=== PATIENT | female | born 1940 | race Caucasian/White ===

== ENCOUNTER 2017-02-20 16:53 | Emergency (ER) | payer MEDICARE, BC ==
--- NOTE | 2017-02-20 17:41 | ED Physician Documentation ---
PD HPI GI BLEED - Stated complaint Stated Complaint: RECTAL BLEED - Chief complaint Chief Complaint: General - History obtained from History obtained from: Patient - History of Present Illness Timing - onset: How many days ago (3) Timing - duration: Days (3) Timing - details: Gradual onset Pain level max: 0 Pain level now: 0 Associated symptoms: Maroon stool (states dark/bright blood coating the stool). No: Hematemesis, Black/tarry stool, Diarrhea, Constipation, Abdominal pain Contributing factors: No: Sick contact, Bad food, Travel, Recent antibiotics, Alcohol use, Aspirin use, NSAID use, Stress, Anticoagulated, Diabetes Improved by: Other (nothing) Worsened by: Other (nothing) Similar symptoms before: Has not had sx before Recently seen: Clinic (2 days ago for same. Has a colonoscopy scheduled for Thursday. 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 - Past Surgical History General: Appendectomy /DIGITAL TECHNICIAN: Mastectomy HEENT: Tonsil/Adenoidectomy - Present Medications Home Medications: Ambulatory Orders Medication Instructions Recorded Confirmed Amlodipine/Atorvastatin 1 tab PO DAILY 02/20/17 02/20/17 [Amlodipine-Atorvast 5-40 mg] Hydrochlorothiazide 1 tab PO DAILY 02/20/17 02/20/17 [Hydrochlorothiazide] Levothyroxine Sodium 1 tab PO DAILY 02/20/17 02/20/17 Metoprolol Succinate [Toprol Xl] 1 tab PO DAILY 02/20/17 02/20/17 - Allergies Allergies/Adverse Reactions: Allergies Allergy/AdvReac Type Severity Reaction Status Date / Time acetaminophen [From Percocet] AdvReac Nausea Verified 02/20/17 17:09 oxycodone HCl * AdvReac Nausea Verified 02/20/17 17:09 [From Percocet] - Social History Does the pt smoke?: No Smoking Status: Former smoker Does the pt drink ETOH?: Yes ETOH Use: Wine, Liquor Does the pt have substance abuse?: No - Immunizations Immunizations are current?: Yes PD ED PE NORMAL - Vitals Vital signs reviewed: Yes - General General: Alert and oriented X 3, No acute distress - HEENT HEENT: Moist mucous membranes - Neck Neck: Supple, no meningeal sign - Cardiac Cardiac: RRR - Respiratory Respiratory: No respiratory distress, Clear bilaterally - Abdomen Abdomen: Soft, Non tender, Non distended - Female Female : Pt declined (had rectal 2 days ago and has colonoscopy in 3 days) - Derm Derm: Warm and dry - Neuro Neuro: Alert and oriented X 3 - Psych Psych: Normal mood, Normal affect Results - Vitals Vitals: Vital Signs - 24 hr 02/20/17 02/20/17 17:00 18:24 Temperature 36.5 C 37.0 C Heart Rate 64 57 L Respiratory 20 16 Rate Blood Pressure 156/71 H 150/65 H O2 Saturation 100 98 Oxygen O2 Source Room air - Labs Labs: Laboratory Tests 02/20/17 02/20/17 02/20/17 17:24 17:24 17:24 WBC 6.9 RBC 3.40 L Hgb 10.3 L Hct 30.3 L MCV 89.1 MCH 30.4 MCHC 34.1 RDW 14.2 Plt Count 274 MPV 9.4 Neut # 4.0 Lymph # 2.2 [place] # 0.6 Eos # 0.1 Baso # 0.1 Absolute Nucleated RBC 0.01 Nucleated RBCs 0.1 PT INR APTT Sodium 137 Potassium 3.8 Chloride 102 Carbon Dioxide 24 Anion Gap 11.0 BUN 19 Creatinine 0.5 Estimated GFR (MDRD) 121 Glucose 95 Calcium 9.3 Total Bilirubin 0.5 AST 30 ALT 31 Alkaline Phosphatase 64 Total Protein 7.2 Albumin 4.3 Globulin 2.9 Albumin/Globulin Ratio 1.5 Lipase 35 Blood Type AB NEGATIVE Antibody Screen NEGATIVE 02/20/17 18:10 WBC RBC Hgb Hct MCV MCH MCHC RDW Plt Count MPV Neut # Lymph # [place] # Eos # Baso # Absolute Nucleated RBC Nucleated RBCs PT 10.3 INR 0.9 APTT 25.5 Sodium Potassium Chloride Carbon Dioxide Anion Gap BUN Creatinine Estimated GFR (MDRD) Glucose Calcium Total Bilirubin AST ALT Alkaline Phosphatase Total Protein Albumin Globulin Albumin/Globulin Ratio Lipase Blood Type Antibody Screen PD MEDICAL DECISION MAKING - ED course Complexity details: reviewed results, re-evaluated patient, considered differential, d/w patient ED course: Patient is a 76-year-old female with what sounds like a stable lower GI bleed. Asymptomatic here. Declines a rectal examination. She is very well-appearing, nontoxic. Normal vital signs. Minimally anemic. We will have her follow-up with her doctor next week as scheduled for her colonoscopy. Patient will return if she worsens. Patient counseled regarding signs and symptoms for which I believe and urgent re-evaluation would be necessary. Patient with good understanding of and agreement to plan and is comfortable going home at this time This document was made in part using voice recognition software. While efforts are made to proofread this document, sound alike and grammatical errors may occur. Departure - Departure Disposition: 01 Home, Self Care Clinical Impression: Lower GI bleed Condition: Good Instructions: ED Hematochezia Stable Follow-Up: Murali Pro DO [Primary Care Provider] - Within 3 Days Comments: Return if the bleeding worsens, you develop lightheadedness, shortness of breath , or chest pain. Discharge Date/Time: 02/20/17 19:05
[2017-02-20 17:55] LABS: BASOPHILS # (AUTO) 0.1 10^3/uL (0.0-0.1); BASOPHILS % (AUTO) 0.8 %; EOSINOPHILS # (AUTO) 0.1 10^3/uL (0.0-0.7); EOSINOPHILS % (AUTO) 1.1 %; HCT - HEMATOCRIT 30.3 % (37.0-47.0); HGB - HEMOGLOBIN 10.3 g/dL (12.0-16.0); LYMPHOCYTES # (AUTO) 2.2 10^3/uL (1.5-3.5); LYMPHOCYTES % (AUTO) 31.5 %; MEAN CORPUSCULAR HEMOGLOBIN 30.4 pg (27.0-31.0); MEAN CORPUSCULAR HGB CONC 34.1 g/dL (32.0-36.0); MEAN CORPUSCULAR VOLUME 89.1 fL (81.0-99.0); MEAN PLATELET VOLUME 9.4 fL (7.9-10.8); MONOCYTES # (AUTO) 0.6 10^3/uL (0.0-1.0); MONOCYTES % (AUTO) 8.9 %; NEUTROPHILS % (AUTO) 57.7 %; NUCLEATED RED BLOOD CELLS AUTO 0.1 /100WBC; RED CELL DISTRIBUTION WIDTH 14.2 % (12.0-15.0); UNCORRECTED WHITE BLOOD COUNT 6.9 x10^3/uL; WHITE BLOOD COUNT 6.9 x10^3/uL (4.8-10.8)
[2017-02-20 18:03] LABS: ALBUMIN/GLOBULIN RATIO 1.5 (1.0-2.2); BILIRUBIN,TOTAL 0.5 mg/dL (0.2-1.0); CALCIUM 9.3 mg/dL (8.5-10.3); CREATININE 0.5 mg/dL (0.4-1.0); POTASSIUM 3.8 mmol/L (3.5-5.0); TOTAL PROTEIN 7.2 g/dL (6.7-8.2)
[2017-02-20 18:25] VITALS: BP 150/65
[2017-02-20 18:27] LABS: INR 0.9 (0.8-1.2); PT - PROTHROMBIN TIME 10.3 secs (9.9-12.6)
[2017-02-20 18:35] LABS: PARTIAL THROMBOPLASTIN TIME 25.5 secs (24.9-33.3)
== END 2017-02-20 19:05 | disposition home or self-care (01) ==
LOC: ED 16:53
DX: K92.1 Melena (principal); I10 Essential (primary) hypertension; J44.9 Chronic obstructive pulmonary disease, unspecified; Z85.3 Personal history of malignant neoplasm of breast; Z90.10 Acquired absence of unspecified breast and nipple; Z87.891 Personal history of nicotine dependence
CPT/HCPCS: 36415; 80053; 83690; 85025; 85610; 85730; 86850; 86900; 86901; 99283; 99284

== ENCOUNTER 2017-03-05 08:30 | Day surgery (SDC) | payer MEDICARE, BC ==
[2017-03-05] MEDS ORDERED: LACTATED RINGERS 1,000 ML IV ONE (08:54)
[2017-03-05] MEDS ORDERED: fentaNYL 100 MCG/2 ML VIAL IVP ONE (09:32)
[2017-03-05] MEDS ORDERED: MIDAZOLAM 2 MG/2 ML VIAL IVP ONE (09:32)
[2017-03-05 10:58] VITALS: BP 122/68
== END 2017-03-05 08:31 | disposition home or self-care (01) ==
LOC: SDS 08:30
PROVIDERS: ATTEND Surgery
PROC: 0DBL8ZZ Excision of Transverse Colon, Via Natural or Artificial Opening Endoscopic (ICD-10-PCS; 2017-03-05)
PROC: 0DBK8ZZ Excision of Ascending Colon, Via Natural or Artificial Opening Endoscopic (ICD-10-PCS; principal; 2017-03-05 09:45)
DX: K62.5 Hemorrhage of anus and rectum (principal); D12.3 Benign neoplasm of transverse colon; D12.2 Benign neoplasm of ascending colon; K64.8 Other hemorrhoids; K57.30 Diverticulosis of large intestine without perforation or abscess without bleeding
CPT/HCPCS: 45380; J7120; 88305

== ENCOUNTER 2017-05-04 15:20 | Outpatient (CLI) | payer MEDICARE, BC ==
[2017-05-04 13:11] LABS: BASOPHILS % (AUTO) 0.6 %; EOSINOPHILS # (AUTO) 0.1 10^3/uL (0.0-0.7); EOSINOPHILS % (AUTO) 1.7 %; HCT - HEMATOCRIT 33.5 % (37.0-47.0); HGB - HEMOGLOBIN 10.6 g/dL (12.0-16.0); LYMPHOCYTES # (AUTO) 1.7 10^3/uL (1.5-3.5); LYMPHOCYTES % (AUTO) 24.5 %; MEAN CORPUSCULAR HEMOGLOBIN 23.5 pg (27.0-31.0); MEAN CORPUSCULAR HGB CONC 31.6 g/dL (32.0-36.0); MEAN CORPUSCULAR VOLUME 74.4 fL (81.0-99.0); MEAN PLATELET VOLUME 8.4 fL (7.9-10.8); MONOCYTES # (AUTO) 0.8 10^3/uL (0.0-1.0); MONOCYTES % (AUTO) 11.1 %; NEUTROPHILS # (AUTO) 4.2 10^3/uL (1.5-6.6); NEUTROPHILS % (AUTO) 62.1 %; NUCLEATED RED BLOOD CELLS AUTO 0.1 /100WBC; RED CELL DISTRIBUTION WIDTH 18.1 % (12.0-15.0); UNCORRECTED WHITE BLOOD COUNT 6.8 x10^3/uL; WHITE BLOOD COUNT 6.8 x10^3/uL (4.8-10.8)
[2017-05-04 13:53] LABS: ALBUMIN/GLOBULIN RATIO 1.4 (1.0-2.2); BILIRUBIN,TOTAL 0.5 mg/dL (0.2-1.0); BUN - BLOOD UREA NITROGEN 16 mg/dL (6-20); CALCIUM 9.5 mg/dL (8.5-10.3); CARBON DIOXIDE - CO2 24 mmol/L (21-32); CHLORIDE 105 mmol/L (101-111); CHOL/HDL RATIO 3.6 (<4.4); CHOLESTEROL 204 mg/dL; CREATININE 0.7 mg/dL (0.4-1.0); GFR - MDRD 82 (>89); GLUCOSE 101 mg/dL (70-100); HDL CHOLESTEROL 57 mg/dL; LDL/HDL RATIO 2.1 (<4.4); POTASSIUM 3.8 mmol/L (3.5-5.0); SODIUM 138 mmol/L (135-145); TOTAL PROTEIN 7.1 g/dL (6.7-8.2); TRIGLYCERIDES 148 mg/dL; VLDL CHOLESTEROL 30 mg/dL
== END 2017-05-04 15:21 | disposition home or self-care (01) ==
LOC: LAB.WCP 15:20
PROVIDERS: ATTEND Family Medicine
DX: I10 Essential (primary) hypertension (principal); E03.9 Hypothyroidism, unspecified; E78.5 Hyperlipidemia, unspecified
CPT/HCPCS: 36415; 80053; 80061; 84443; 85025

== ENCOUNTER 2017-06-03 07:56 | Outpatient (CLI) | payer MEDICARE, BC ==
--- NOTE | 2017-06-03 12:52 | DEXA Report ---
DEXA SCAN: 06/03/2017 CLINICAL INDICATION: Postmenopausal. TECHNIQUE: Dual energy x-ray absorptiometry (DXA) was performed on a [employer] system. Regions measured are the AP spine, femoral neck, and, if needed, forearm. COMPARISON: None. In accordance with the International Society for Clinical Densitometry (ISCD) guidelines, data from previous exams may be reanalyzed using current recommendations and techniques. This is done to allow a more accurate basis for comparison with the current study. FINDINGS: The data for the lumbar spine is as follows: REGION BMD (g/cm/cm) T-SCORE Z-SCORE L1 1.126 0.0 1.6 L2 1.259 0.5 2.1 L3 1.394 1.6 3.2 L4 1.326 1.1 2.7 L1-L4 1.287 0.9 2.5 NOTE: All evaluable vertebrae are used for classification. The data for the hip is as follows: REGION BMD (g/cm/cm) T-SCORE Z-SCORE Neck 1.021 -0.1 1.7 TOTAL 1.093 0.7 2.3 NOTE: The femoral neck or total proximal femur, whichever is lowest, is used for classification. IMPRESSION: THE WHO CLASSIFICATION BASED ON THE INTERNATIONAL REFERENCE STANDARD IS NORMAL. THE FRACTURE RISK IS NOT INCREASED. RECOMMENDATION: Patients with diagnosis of osteoporosis or osteopenia should have regular bone mineral density assessment. For those eligible for Medicare, routine testing is allowed once every 2 years. Testing frequency can be increased for patients who have rapidly progressing disease or for those who are receiving medical therapy to restore bone mass. COMMENT: World Health Organization (WHO) definitions for osteoporosis and osteopenia: NORMAL BMD: T-score at -1.0 or higher, fracture risk is low. OSTEOPENIA BMD: T-score between -1.0 and -2.5, fracture risk is increased. OSTEOPOROSIS BMD: T-score at -2.5 or lower, fracture risk high. National Osteoporosis Foundation recommends: 1. Obtain adequate dietary calcium (at least 1200 mg per day) and vitamin D (400 -800 international units per day). 2. Participate, as appropriate, in regular weightbearing and muscle- strengthening exercise. 3. Avoid tobacco use and reduce alcohol and caffeine intake. 4. For more detailed information see the website at www.NOF.org. MTDD
== END 2017-06-03 07:57 | disposition home or self-care (01) ==
LOC: DI 07:56
PROVIDERS: ATTEND Family Medicine
DX: Z78.0 Asymptomatic menopausal state (principal)
CPT/HCPCS: 77080

== ENCOUNTER 2017-06-03 07:56 | Outpatient (CLI) | payer MEDICARE, BC ==
--- NOTE | 2017-06-04 18:49 | Mammography Report ---
DIGITAL SCREENING MAMMOGRAM: 06/03/2017 CLINICAL INDICATION: A 76-year-old with personal history of left breast cancer status post mastectom y. COMPARISON: 08/2015, 07/2014, 06/2013, 06/2012, 06/2011, 06/2010. TECHNIQUE: Right CC and MLO views were obtained. FINDINGS: The right breast again demonstrates heterogeneously dense fibroglandular parenchyma. [place], typically benign calcifications are present. Intramammary lymph nodes are stable. No suspicio us masses, clustered microcalcifications, or regions of architectural distortion are identified. IMPRESSION: BENIGN FINDINGS. RECOMMENDATION: Routine annual screening unless otherwise clinically indicated. BI-RADS category 2, benign findings. STANDARD QUALIFYING STATEMENTS 1. This examination was reviewed with the aid of Computer-Aided Detection (CAD). 2. A negative or benign imaging report should not delay biopsy if clinically suspicious findings are present. Consider surgical consultation if warranted. More than 5% of cancers are not identified by i maging. 3. Dense breasts may obscure an underlying neoplasm. JOB #: [id number] EXT JOB #:
== END 2017-06-03 07:57 | disposition home or self-care (01) ==
LOC: DI 07:56
PROVIDERS: ATTEND Family Medicine
DX: Z12.31 Encounter for screening mammogram for malignant neoplasm of breast (principal); Z08 Encounter for follow-up examination after completed treatment for malignant neoplasm; Z85.3 Personal history of malignant neoplasm of breast

== ENCOUNTER 2017-07-09 10:43 | Outpatient (CLI) | payer MEDICARE, BC ==
[2017-07-09 19:30] LABS: BASOPHILS % (AUTO) 0.7 %; EOSINOPHILS # (AUTO) 0.1 10^3/uL (0.0-0.7); EOSINOPHILS % (AUTO) 1.1 %; HCT - HEMATOCRIT 44.5 % (37.0-47.0); HGB - HEMOGLOBIN 14.5 g/dL (12.0-16.0); LYMPHOCYTES # (AUTO) 1.6 10^3/uL (1.5-3.5); LYMPHOCYTES % (AUTO) 29.9 %; MEAN CORPUSCULAR HEMOGLOBIN 26.8 pg (27.0-31.0); MEAN CORPUSCULAR HGB CONC 32.7 g/dL (32.0-36.0); MEAN CORPUSCULAR VOLUME 82.1 fL (81.0-99.0); MEAN PLATELET VOLUME 8.8 fL (7.9-10.8); MONOCYTES # (AUTO) 0.6 10^3/uL (0.0-1.0); MONOCYTES % (AUTO) 10.4 %; NEUTROPHILS # (AUTO) 3.2 10^3/uL (1.5-6.6); NEUTROPHILS % (AUTO) 57.9 %; NUCLEATED RED BLOOD CELLS AUTO 0.2 /100WBC; RED BLOOD COUNT 5.42 10^6/uL (4.20-5.40); RED CELL DISTRIBUTION WIDTH 28.7 % (12.0-15.0); UNCORRECTED WHITE BLOOD COUNT 5.5 x10^3/uL; WHITE BLOOD COUNT 5.5 x10^3/uL (4.8-10.8)
[2017-07-09 19:51] LABS: IRON 94 ug/dL (28-170); TOTAL IRON BINDING CAPACITY 424 ug/dL (250-450); TRANSFERRIN 303 mg/dL (192-382)
[2017-07-09 19:57] LABS: PLATELET ESTIMATE, MANUAL NORMAL (130-450,000) (NORMAL); PLATELET MORPHOLOGY NORMAL APPEARANCE (NORMAL)
[2017-07-09 19:58] LABS: WBC MORPHOLOGY (MULTIPLE) NORMAL APPEARANCE (NORMAL)
[2017-07-09 19:59] LABS: FERRITIN 25.8 ng/mL (11.0-306.8)
== END 2017-07-09 10:44 | disposition home or self-care (01) ==
LOC: LAB.WCP 10:43
PROVIDERS: ATTEND Family Medicine
DX: D50.9 Iron deficiency anemia, unspecified (principal)
CPT/HCPCS: 36415; 82607; 82728; 82746; 83540; 84466; 85025

== ENCOUNTER 2018-05-06 08:09 | Outpatient (CLI) | payer MEDICARE, BC ==
[2018-05-06 13:23] LABS: BASOPHILS % (AUTO) 0.8 %; EOSINOPHILS # (AUTO) 0.1 10^3/uL (0.0-0.7); EOSINOPHILS % (AUTO) 2.3 %; HGB - HEMOGLOBIN 13.2 g/dL (12.0-16.0); LYMPHOCYTES # (AUTO) 2.1 10^3/uL (1.5-3.5); LYMPHOCYTES % (AUTO) 44.5 %; MEAN CORPUSCULAR HEMOGLOBIN 30.9 pg (27.0-31.0); MEAN CORPUSCULAR HGB CONC 34.5 g/dL (32.0-36.0); MEAN CORPUSCULAR VOLUME 89.6 fL (81.0-99.0); MEAN PLATELET VOLUME 8.3 fL (7.9-10.8); MONOCYTES # (AUTO) 0.5 10^3/uL (0.0-1.0); MONOCYTES % (AUTO) 11.4 %; NEUTROPHILS # (AUTO) 1.9 10^3/uL (1.5-6.6); PLT - PLATELET COUNT 286 10^3/uL (130-450); RED BLOOD COUNT 4.27 10^6/uL (4.20-5.40); RED CELL DISTRIBUTION WIDTH 14.9 % (12.0-15.0); WHITE BLOOD COUNT 4.6 x10^3/uL (4.8-10.8)
[2018-05-06 13:49] LABS: THYROID STIMULATING HORMONE 2.42 uIU/mL (0.34-5.60)
[2018-05-06 13:54] LABS: FERRITIN 10.3 ng/mL (11.0-306.8)
[2018-05-06 14:09] LABS: % IRON SATURATION 12 % (20-50); ALBUMIN 3.7 g/dL (3.2-5.5); ALBUMIN/GLOBULIN RATIO 1.2 (1.0-2.2); ALKALINE PHOSPHATASE 60 IU/L (42-121); ALT ALANINE AMINOTRANSFERASE 30 IU/L (10-60); AST ASPARTATE AMINOTRANSFERASE 26 IU/L (10-42); BILIRUBIN,TOTAL 0.9 mg/dL (0.2-1.0); BUN - BLOOD UREA NITROGEN 13 mg/dL (6-20); CALCIUM 9.2 mg/dL (8.5-10.3); CARBON DIOXIDE - CO2 24 mmol/L (21-32); CHLORIDE 107 mmol/L (101-111); CHOL/HDL RATIO 3.9 (<4.4); CHOLESTEROL 203 mg/dL; CREATININE 0.5 mg/dL (0.4-1.0); GFR - MDRD 120 (>89); GLUCOSE 83 mg/dL (70-100); HDL CHOLESTEROL 52 mg/dL; IRON 53 ug/dL (28-170); LDL CHOLESTEROL,CALCULATED 116 mg/dL; LDL/HDL RATIO 2.2 (<4.4); SODIUM 140 mmol/L (135-145); TOTAL IRON BINDING CAPACITY 449 ug/dL (250-450); TOTAL PROTEIN 6.8 g/dL (6.7-8.2); TRANSFERRIN 321 mg/dL (192-382); VLDL CHOLESTEROL 35 mg/dL
== END 2018-05-06 08:10 | disposition home or self-care (01) ==
LOC: LAB.WCP 08:09
PROVIDERS: ATTEND Family Medicine
DX: I10 Essential (primary) hypertension (principal); E78.5 Hyperlipidemia, unspecified; D50.9 Iron deficiency anemia, unspecified; E03.9 Hypothyroidism, unspecified
CPT/HCPCS: 36415; 80053; 80061; 82728; 83540; 83721; 84443; 84466; 85025

== ENCOUNTER 2018-06-30 09:13 | Outpatient (CLI) | payer MEDICARE, BC ==
--- NOTE | 2018-07-05 06:45 | Mammography Report ---
Reason: screening left Procedure Date: 06/30/2018 Accession Number: [id number] / [id number] Procedure: MGN - Screening Mammo Dig LT CPT Code: FULL RESULT: EXAM: Screening Mammo Dig LT DATE: 06/30/2018 9:30 AM CLINICAL HISTORY: 77-year-old female with personal history of left breast cancer status post mastectomy. TECHNIQUE: Right CC and MLO views were obtained. COMPARISON: 06/03/2017, 08/07/2015, 07/19/2014, 06/27/2013. FINDINGS: The right breast demonstrates heterogeneously dense fibroglandular parenchyma. No suspicious masses, clustered microcalcifications, or regions of architectural distortion are identified. IMPRESSION: Negative examination RECOMMENDATION: Routine annual screening unless otherwise clinically indicated. BIRADS CATEGORY 1: Negative STANDARD QUALIFYING STATEMENTS: 1. This examination was not reviewed with the aid of Computer-Aided Detection (CAD). 2. A negative or benign imaging report should not delay biopsy if clinically suspicious findings are present. Consider surgical consultation if warrented. More than 5% of cancers are not identified by imaging. 3. Dense breasts may obscure an underlying neoplasm. 4. This examination was reviewed without the aid of 3D breast imaging (tomosynthesis).
== END 2018-06-30 09:14 | disposition home or self-care (01) ==
LOC: DI.N 09:13
PROVIDERS: ATTEND Radiology Diagnostic Radiology
DX: Z12.31 Encounter for screening mammogram for malignant neoplasm of breast (principal); Z08 Encounter for follow-up examination after completed treatment for malignant neoplasm; Z85.3 Personal history of malignant neoplasm of breast

== ENCOUNTER 2018-08-28 13:06 | Outpatient (CLI) | payer MEDICARE, BC | END 2018-08-28 13:07 | disposition critical access hospital (66) | LOC: EMS 13:06 | PROVIDERS: ATTEND Surgery | DX: R20.0 Anesthesia of skin (principal) | CPT/HCPCS: A0425; A0427 ==

== ENCOUNTER 2018-08-28 13:24 | Observation (INO) | payer MEDICARE, BC ==
--- NOTE | 2018-08-28 13:49 | ED Physician Documentation ---
PD HPI FOCAL NEURO - Stated complaint Stated Complaint: POSS STROKE - History obtained from History obtained from: Patient - History of Present Illness Timing - onset: Today (About 12pm started to feel dizzy and felt numbness starting ion the left hand and proceding to the left face. Total time of sx lasted about 2 min. 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 : None Psych: None Musculoskeletal: None Derm: None - Past Surgical History General: Appendectomy /FREIGHT TEAM ASSOCIATE: Dilation and currettage, Mastectomy HEENT: Tonsil/Adenoidectomy - Present Medications Home Medications: Ambulatory Orders Medication Instructions Recorded Confirmed Amlodipine/Atorvastatin 1 tab PO DAILY 02/20/17 03/05/17 [Amlodipine-Atorvast 5-40 mg] Hydrochlorothiazide 1 tab PO DAILY 02/20/17 03/05/17 Levothyroxine Sodium 1 tab PO DAILY 02/20/17 03/05/17 Metoprolol Succinate [Toprol Xl] 1 tab PO DAILY 02/20/17 03/05/17 - Allergies Allergies/Adverse Reactions: Allergies Allergy/AdvReac Type Severity Reaction Status Date / Time acetaminophen [From Percocet] AdvReac Nausea Verified 02/20/17 17:09 oxycodone HCl * AdvReac Nausea Verified 02/20/17 17:09 [From Percocet] - Social History Does the pt smoke?: No Smoking Status: Former smoker Does the pt drink ETOH?: Yes Does the pt have substance abuse?: No - Immunizations Immunizations are current?: Yes PD ED PE NORMAL - Vitals Vital signs reviewed: Yes - General General: Alert and oriented X 3, No acute distress - HEENT HEENT: PERRL, EOMI - Neck Neck: Supple, no meningeal sign, No bony TTP - Cardiac Cardiac: RRR, No murmur - Respiratory Respiratory: No respiratory distress, Clear bilaterally - Abdomen Abdomen: Normal bowel sounds, Soft, Non tender - Neuro Neuro: Alert and oriented X 3, athletics teacher 2-12 intact Eye Opening: Spontaneous Motor: Obeys Commands Verbal: Oriented GCS Score: 15 - Psych Psych: Normal mood, Normal affect NIHSS - Time Time: 13:50 - Level of Consciousness Level of consciousness: (0) Alert, Keenly responsive LOC Questions: (0) Answers both Q's correct LOC Commands: (0) Performs both correctly - Gaze Best Gaze: (0) Normal - Visual Visual: (0) No loss - Facial Palsy Facial Palsy: (0) Normal, symmetrical movement - Motor Arms (both separate) Motor Arm (right): (0) No drift Motor Arm (left): (0) No drift - Motor Legs (both separate) Motor Leg (right): (0) No drift Motor Leg (left): (0) No drift - Limb Ataxia Limb Ataxia: (0) Absent - Sensory Sensory: (0) Normal - Best Language Best Language: (0) No aphasia - Dysarthria Dysarthria: (0) Normal - Extinction and Inattention (formally neg Extinction and inattention: (0) No abnormality - Total Score/Results Total Score/Result: 0 Results - Vitals Vitals: Vital Signs - 24 hr 08/28/18 13:50 Temperature 37 C Heart Rate 64 Respiratory 16 Rate Blood Pressure 175/73 H O2 Saturation 96 Oxygen O2 Source Room air - EKG (time done) 1400 Rate: Rate (enter#) (64) Rhythm: NSR [place]: Normal QRS: LVH Ischemia: Normal ST segments, Q waves (inferior) Computer interpretation: Agree with computer - Labs Labs: Laboratory Tests 08/28/18 08/28/18 08/28/18 14:08 14:08 14:08 WBC 7.6 RBC 4.78 Hgb 14.6 Hct 42.3 MCV 88.5 MCH 30.5 MCHC 34.5 RDW 15.6 H Plt Count 259 MPV 7.9 Neut # (Auto) 5.1 Lymph # (Auto) 1.6 [place] # (Auto) 0.7 Eos # (Auto) 0.1 Baso # (Auto) 0.1 Absolute Nucleated RBC 0.00 Nucleated RBC % 0.0 PT 11.8 INR 1.1 Sodium 135 Potassium 3.4 L Chloride 100 L Carbon Dioxide 25 Anion Gap 10.0 BUN 19 Creatinine 0.7 Estimated GFR (MDRD) 81 L Glucose 101 H Calcium 9.6 Total Bilirubin 0.9 AST 28 ALT 39 Alkaline Phosphatase 69 Troponin I Total Protein 7.3 Albumin 4.2 Globulin 3.1 Albumin/Globulin Ratio 1.4 Lipase 32 08/28/18 14:08 WBC RBC Hgb Hct MCV MCH MCHC RDW Plt Count MPV Neut # (Auto) Lymph # (Auto) [place] # (Auto) Eos # (Auto) Baso # (Auto) Absolute Nucleated RBC Nucleated RBC % PT INR Sodium Potassium Chloride Carbon Dioxide Anion Gap BUN Creatinine Estimated GFR (MDRD) Glucose Calcium Total Bilirubin AST ALT Alkaline Phosphatase Troponin I < 0.04 Total Protein Albumin Globulin Albumin/Globulin Ratio Lipase PD MEDICAL DECISION MAKING - ED course ED course: 78-year-old woman with apparent TIA resolved on arrival therefore TPA is not considered. Initial workup negative except for high blood pressure which will be observed. She is placed on Plavix since she is already on aspirin. Spoke with Dr. Sweet for observation at 2:50 PM. Departure - Departure Disposition: ED Place in Observation Clinical Impression: TIA (transient ischemic attack) Condition: Stable
[2018-08-28 14:14] LABS: BASOPHILS # (AUTO) 0.1 10^3/uL (0.0-0.1); BASOPHILS % (AUTO) 0.8 %; EOSINOPHILS # (AUTO) 0.1 10^3/uL (0.0-0.7); EOSINOPHILS % (AUTO) 1.5 %; HGB - HEMOGLOBIN 14.6 g/dL (12.0-16.0); LYMPHOCYTES # (AUTO) 1.6 10^3/uL (1.5-3.5); LYMPHOCYTES % (AUTO) 21.4 %; MEAN CORPUSCULAR HEMOGLOBIN 30.5 pg (27.0-31.0); MEAN CORPUSCULAR HGB CONC 34.5 g/dL (32.0-36.0); MEAN CORPUSCULAR VOLUME 88.5 fL (81.0-99.0); MEAN PLATELET VOLUME 7.9 fL (7.9-10.8); MONOCYTES # (AUTO) 0.7 10^3/uL (0.0-1.0); MONOCYTES % (AUTO) 9.6 %; NEUTROPHILS # (AUTO) 5.1 10^3/uL (1.5-6.6); NEUTROPHILS % (AUTO) 66.7 %; PLT - PLATELET COUNT 259 10^3/uL (130-450); RED BLOOD COUNT 4.78 10^6/uL (4.20-5.40); RED CELL DISTRIBUTION WIDTH 15.6 % (12.0-15.0); WHITE BLOOD COUNT 7.6 x10^3/uL (4.8-10.8)
[2018-08-28 14:26] LABS: ALBUMIN 4.2 g/dL (3.2-5.5); ALBUMIN/GLOBULIN RATIO 1.4 (1.0-2.2); BILIRUBIN,TOTAL 0.9 mg/dL (0.2-1.0); CALCIUM 9.6 mg/dL (8.5-10.3); CREATININE 0.7 mg/dL (0.4-1.0); TOTAL PROTEIN 7.3 g/dL (6.7-8.2)
[2018-08-28 14:33] LABS: INR 1.1 (0.8-1.2); PT - PROTHROMBIN TIME 11.8 secs (9.9-12.6)
--- NOTE | 2018-08-28 14:45 | CT Report ---
Reason: L sided resolved defecits Procedure Date: 08/28/2018 Accession Number: [id number] / [id number] Procedure: CT - Head W/O CPT Code: FULL RESULT: EXAM: CT HEAD EXAM DATE: 08/28/2018 02:13 PM. CLINICAL HISTORY: L sided resolved deficits. COMPARISON: None. TECHNIQUE: Multiaxial CT images were obtained from the foramen magnum to the vertex. Reformats: Sagittal and coronal. IV contrast: None. In accordance with CT protocol optimization, one or more of the following dose reduction techniques were utilized for this exam: automated exposure control, adjustment of mA and/or KV based on patient size, or use of iterative reconstructive technique. FINDINGS: Parenchyma: No intraparenchymal hemorrhage. No evidence of mass, midline shift, or CT findings of infarction. Sebastian-white differentiation is distinct. Extraaxial Spaces: Normal for age. No subdural or epidural collections identified. Ventricles: Normal in size and position. Sinuses and Orbits: Imaged paranasal sinuses, orbits, and mastoids show no significant abnormality. Bones: No evidence of fracture or calvarial defect. Other: None. IMPRESSION: Negative for an acute or focal intracranial abnormality. RADIA
[2018-08-28] MEDS ORDERED: CLOPIDOGREL 75 MG TABLET PO STA (14:49)
[2018-08-28] MEDS ORDERED: PROCHLORPERAZINE 10 MG/2 ML VIAL IVP PRN (15:15)
[2018-08-28] MEDS ORDERED: SODIUM CHLORIDE FLUSH 0.9% 10 ML SYRINGE IVP PRN (15:15)
[2018-08-28] MEDS: SODIUM CHLORIDE FLUSH 0.9% 10 ML SYRINGE IVP SCH ×2 (19:14→23:59)
[2018-08-28] MEDS ORDERED: ATORVASTATIN 40 MG TABLET PO SCH (21:00)
--- NOTE | 2018-08-28 21:20 | HISTORY & PHYSICAL EXAMINATION ---
DATE OF SERVICE: 08/28/2018 Physician: Kayleen Sweet MD HISTORY OF PRESENT ILLNESS: This is a 78-year-old white female with a history of hypertension, hyperlipidemia and hypothyroidism. The patient developed sudden onset of dizziness and left arm numbness, which resolved in under 5 minutes. She presented to the emergency room, however, because of concern for a TIA and is being placed in observation for TIA workup. She has never had symptoms like this before. There was no loss of motor strength. She denies any cardiac history. She is compliant with her medications. PAST MEDICAL HISTORY: Hypertension, hyperlipidemia, hypothyroidism. ALLERGIES: 1. TYLENOL. 2. OXYCODONE. MEDICATIONS: 1. HCTZ 25 mg daily. 2. Toprol XL 100 mg daily. 3. Levothyroxine 75 mcg daily. 4. Amlodipine with atorvastatin 5/40 mg Daily. 5. Aspirin 81 mg daily. FAMILY HISTORY: No inherited diseases. SOCIAL HISTORY: She is a nonsmoker. Drinks no alcohol. No illicit drug use. REVIEW OF SYSTEMS: A comprehensive review of systems was performed and the pertinent positives are listed, the rest are negative. PHYSICAL EXAMINATION: GENERAL: White female who appears younger than her age. She is supine in bed and appears comfortable. VITAL SIGNS: Blood pressure 150 to 175/60 to 70, heart rate is in the 60s in sinus rhythm. She is afebrile. Room air saturation 96%. HEENT: Unremarkable. NECK: Without carotid bruits or JVD. LUNGS: Clear. HEART: Heart sounds normal. No murmur. ABDOMEN: Soft, nontender. Normal bowel sounds. EXTREMITIES: No clubbing, cyanosis, edema. NEUROLOGIC: Intact (and it was intact by the time she had presented to the emergency room). LABORATORY DATA: Sodium 135, potassium 3.4, BUN 19, creatinine 0.7. Normal liver tests, normal lipase. Troponin not detectable. INR normal at 1.1. CBC normal. No urinalysis was done. No chest x-ray was done. Head CT was done that was negative for any acute focal intracranial abnormality. EKG: Normal sinus rhythm, rate of 64, possible LVH voltage and QS waves are present in leads III and aVF, therefore consider an old inferior NM. IMPRESSION/DIAGNOSES: 1. Transient ischemic attack. 2. Hypertension. 3. Elevated cholesterol history. 4. Hypothyroidism. 5. Abnormal EKG. PLAN: Place the patient in Observation status on telemetry to watch for atrial fibrillation. Cycle her troponins x3. Obtain an Echo to rule out an intracardiac clot and obtain carotid Dopplers to rule out significant plaque or stenosis. Repeat brain imaging using MRI/MRA. Check lipids and the treatment may need to be adjusted. Continue with her antihypertensives and her thyroid medications. Continue daily aspirin and add Plavix. CODE STATUS: FULL CODE. DEEP VENOUS THROMBOSIS PROPHYLAXIS: SCDs. ATTESTATION: The patient is expected to be discharged or transferred to another facility within 96 hours: Yes. TD: 08/28/2018 19:11 KATHLEEN
[2018-08-28] MEDS: FAMOTIDINE 20 MG TABLET PO SCH (21:50)
[2018-08-29 06:49] LABS: BUN - BLOOD UREA NITROGEN 15 mg/dL (6-20); CALCIUM 9.3 mg/dL (8.5-10.3); CARBON DIOXIDE - CO2 27 mmol/L (21-32); CHLORIDE 103 mmol/L (101-111); CHOL/HDL RATIO 4.3 (<4.4); CHOLESTEROL 213 mg/dL; CREATININE 0.7 mg/dL (0.4-1.0); GFR - MDRD 81 (>89); GLUCOSE 111 mg/dL (70-100); HDL CHOLESTEROL 50 mg/dL; LDL CHOLESTEROL,CALCULATED 122 mg/dL; LDL/HDL RATIO 2.4 (<4.4); SODIUM 140 mmol/L (135-145); VLDL CHOLESTEROL 41 mg/dL
[2018-08-29] MEDS ORDERED: LEVOTHYROXINE 75 MCG TABLET PO SCH (07:00)
[2018-08-29] MEDS ORDERED: POLYETHYLENE GLYCOL 3350 17 GM PACKET PO SCH (09:00)
[2018-08-29] MEDS ORDERED: CLOPIDOGREL 75 MG TABLET PO SCH (09:00)
[2018-08-29] MEDS ORDERED: METOPROLOL SUCCINATE 50 MG TABLET PO SCH (09:00)
[2018-08-29] MEDS ORDERED: ASPIRIN EC 81 MG TABLET PO SCH (09:00)
[2018-08-29] MEDS ORDERED: hydroCHLOROthiazide 25 MG TABLET PO SCH (09:00)
[2018-08-29] MEDS ORDERED: amLODIPine 5 MG TABLET PO SCH (09:00)
[2018-08-29] MEDS: SODIUM CHLORIDE FLUSH 0.9% 10 ML SYRINGE IVP SCH (09:15)
[2018-08-29] MEDS: FAMOTIDINE 20 MG TABLET PO SCH (09:15)
[2018-08-29 13:34] VITALS: BP 146/73
--- NOTE | 2018-08-29 14:08 | Ultrasound Report ---
Reason: TIA Procedure Date: 08/29/2018 Accession Number: [id number] / [id number] Procedure: US - Carotid Doppler Complete CPT Code: FULL RESULT: EXAM: BILATERAL CAROTID AND VERTEBRAL ARTERY DUPLEX DOPPLER ULTRASOUND. EXAM DATE: 08/29/2018 01:30 PM CLINICAL HISTORY: Transient ischemic attack. COMPARISON: None. TECHNIQUE: Grayscale imaging, color Doppler, and duplex spectral Doppler were used to evaluate the carotid and vertebral arteries bilaterally. Static images were obtained. FINDINGS: There is mild plaque in the right and left carotid bulb and proximal internal carotid arteries. No high-grade stenosis on aldridge scale or color Doppler imaging. Normal antegrade flow is present in bilateral vertebral arteries. VELOCITIES (cm/sec): Right CCA mid: PSV 66 cm/sec CCA dist: PSV 55 cm/sec ICA prox: PSV 61 cm/sec, EDV 10 cm/sec ICA mid: PSV 59 cm/sec, EDV 13 cm/sec ICA dist: PSV 62 cm/sec, EDV 14 cm/sec ECA: PSV 118 cm/sec Vert: PSV 62 cm/sec ICA/CCA: 1.13 Left CCA mid: PSV 62 cm/sec CCA dist: PSV 61 cm/sec ICA prox: PSV 100 cm/sec, EDV 15 cm/sec ICA mid: PSV 92 cm/sec, EDV 16 cm/sec ICA dist: PSV 94 cm/sec, EDV 18 cm/sec ECA: PSV 120 cm/sec Vert: PSV 62 cm/sec ICA/CCA: 1.64 ICA diameter stenosis: Right: <50% by velocity and <70% by NASCET criteria. Left: <50% by velocity and <70% by NASCET criteria. IMPRESSION: 1. Mild bilateral carotid artery plaquing. 2. In the right carotid artery there are no elevated carotid artery velocities to suggest hemodynamically significant stenosis. 3. In the left carotid artery there are no elevated carotid artery velocities to suggest hemodynamically significant stenosis. 4. Normal antegrade flow is present in bilateral vertebral arteries. General Recommendations: Stenosis =50% ICA - Follow-up ultrasound 6-12 months Stenosis <50% ICA - High Risk Patient with plaque - Follow-up ultrasound 1-2 years Normal Study but High Risk Patient - Follow-up ultrasound 3-5 years Management recommendations and diagnostic criteria are based on current IAC endorsed standards in Carotid Artery Stenosis: Grayscale and Doppler Ultrasound Diagnosis. Validated velocity measurements with angiographic measurements and velocity criteria are extrapolated from diameter data as defined by the Society of Radiologists in Ultrasound Consensus Conference Radiology 2003; 229;340-346. RADIA
--- NOTE | 2018-08-29 14:32 | Discharge Plan ---
Discharge Plan Disposition: 01 Home, Self Care Condition: Stable Prescriptions: Clopidogrel [Plavix] 75 mg PO DAILY #30 tablet Diet: Cardiac Activity Restrictions: Activity as Tolerated Shower Restrictions: No Driving Restrictions: No Instruction Topics: Triglycerides, Lipid Panel Additional Instructions or Follow Up instructions: You were here for evaluation of symptoms that were probably a TIA. Testing showed mild plaque build up in your carotid arteries. Your cholesterol results show that you need stricter control of lipids and triglycerides. Therefore, you should consume less animal fat and dairy products and less starches (bread, pasta, and sweets). Start taking the new medication Plavix daily and continue all your pre-hospital medications. You should see your doctor in follow-up in 1-2 weeks. If you have new or worsening symptoms come to the ER. No Smoking: If you smoke, Please STOP! Call for help. Follow-up with: Murali Pro DO [Primary Care Provider] -
--- NOTE | 2018-09-02 15:36 | DISCHARGE SUMMARY ---
Physician: Kayleen Sweet MD DATE OF ADMISSION: 08/28/2018 DATE OF DISCHARGE: 08/29/2018 HISTORY OF PRESENT ILLNESS: This is a 78-year-old white female with a history of hypertension, hyperlipidemia, and hypothyroidism. The patient developed sudden onset of dizziness and left arm numbness and she presented to the emergency room for concern of a TIA, the symptoms had completely resolved by the time she came to the ER. She was placed in Observation for testing regarding a TIA. HOSPITAL COURSE AND DISCHARGE DIAGNOSES 1. Transient ischemic attack. The patient had no recurrence of symptoms. She underwent an Echo that showed normal LV contractility with EF of 65-70%, no clot seen, normal RV size and function, mild aortic regurgitation. Troponin values were negative. Her brain imaging done in the ER had shown a negative exam for acute or focal intracranial abnormality. A carotid Doppler was also done that showed mild bilateral plaque. 2. Carotid stenosis. The carotid Doppler report stated mild plaque in the right and left carotid bulb and proximal internal carotid arteries, but no high- grade stenosis. She was advised, therefore to have good cardiovascular risk factor management and Plavix was added to her daily aspirin. 3. Hypertension. The patient's blood pressure medications were continued and she had good control of blood pressure while here. 4. Elevated cholesterol. The patient had a fasting lipid panel done which showed cholesterol of 213, LDL 122, HDL 50, and triglycerides of 203. I advised the patient regarding a diet that should have lower animal fats and dairy products and lower starches (for her this is bread and pasta). 5. Hypothyroidism. Her Levothyroxine was continued while here. 6. Abnormal EKG. The patient's resting EKG showed sinus rhythm, LVH voltage and QS waves in leads III and aVF. There were no resting regional wall motion abnormalities on the Echo, however. LABS AND IMAGING: reviewed and summarized. CONDITION AT DISCHARGE: Stable. PHYSICAL EXAMINATION VITAL SIGNS: Blood pressure 146/70, heart rate of 57, sinus rhythm, afebrile, room air saturation 96%. HEENT: Unremarkable. NECK: Without JVD or carotid bruits. CHEST: Clear. HEART: Sounds normal. ABDOMEN: Soft. EXTREMITIES: Without edema. NEUROLOGIC: Grossly intact. ALLERGIES: TYLENOL and OXYCODONE. DISCHARGE MEDICATIONS 1. Amlodipine/atorvastatin 5/40 mg daily. 2. HCTZ 25 mg daily. 3. Toprol-XL 100 mg daily. 4. Baby aspirin daily. 5. Plavix 75 mg daily. 6. Levothyroxine 75 mcg daily. CODE STATUS: FULL CODE. FOLLOWUP: She was advised to see her PCP in a week for further followup and management. cc: Murali Pro DO TD: 09/02/2018 15:17 MTDD
== END 2018-08-29 14:43 | disposition home or self-care (01) ==
LOC: EDSEX → EDUNIT# → EDBD → ED 13:24 → OBS 15:15
PROVIDERS: ADMIT Internal Medicine; ATTEND Internal Medicine
DX: G45.9 Transient cerebral ischemic attack, unspecified (principal); I65.23 Occlusion and stenosis of bilateral carotid arteries; I10 Essential (primary) hypertension; E78.5 Hyperlipidemia, unspecified; E03.9 Hypothyroidism, unspecified; R94.31 Abnormal electrocardiogram [ECG] [EKG]; J44.9 Chronic obstructive pulmonary disease, unspecified; Z79.82 Long term (current) use of aspirin; Z87.891 Personal history of nicotine dependence
CPT/HCPCS: 36415; 70450; 80048; 80053; 80061; 83690; 84484; 85025; 85610; 93005; 93306; 93880; 99284; 99285; A9270; G0378; 83721

== ENCOUNTER 2019-07-20 08:31 | Outpatient (CLI) | payer MEDICARE ==
--- NOTE | 2019-07-21 08:55 | Mammography Report ---
Reason: SCREENING MAMMO Procedure Date: 07/20/2019 Accession Number: [id number] / [id number] Procedure: MGN - Screening Mammo Dig RT CPT Code: FULL RESULT: EXAM: Screening Mammo Dig RT DATE: 07/20/2019 8:52 AM CLINICAL HISTORY: Screening encounter. History of endometrial cancer. Personal history of breast cancer status post left mastectomy in 2004. TECHNIQUE: (R) - Right CC and MLO views were obtained. COMPARISON: 06/30/2018 through 06/05/2010. PARENCHYMAL PATTERN: (D) - The breast(s) demonstrate(s) heterogeneously dense fibroglandular parenchyma. FINDINGS: Typically Long-term stable right breast upper outer quadrant intramammary lymph node is noted. There are no suspicious masses, calcifications, or areas of distortion. IMPRESSION: Benign findings. BI-RADS category 2. RECOMMENDATION: (ANNUAL) - Recommend routine annual screening mammography. BI-RADS CATEGORY: (2) - Benign Findings. STANDARD QUALIFYING STATEMENTS: 1. This examination was not reviewed with the aid of Computer-Aided Detection (CAD). 2. A negative or benign imaging report should not preclude biopsy if clinically suspicious findings are present. 3. Dense breasts may obscure an underlying neoplasm. 4. This examination was reviewed without the aid of 3D breast imaging (tomosynthesis).
== END 2019-07-20 08:32 | disposition home or self-care (01) ==
LOC: DI.N 08:31
DX: Z12.31 Encounter for screening mammogram for malignant neoplasm of breast (principal); Z85.3 Personal history of malignant neoplasm of breast; Z90.12 Acquired absence of left breast and nipple

== ENCOUNTER 2019-09-08 08:00 | Outpatient (CLI) | payer MEDICARE ==
[2019-09-08 13:04] LABS: BASOPHILS % (AUTO) 0.8 %; EOSINOPHILS # (AUTO) 0.1 10^3/uL (0.0-0.7); HGB - HEMOGLOBIN 13.1 g/dL (12.0-16.0); LYMPHOCYTES # (AUTO) 1.9 10^3/uL (1.5-3.5); LYMPHOCYTES % (AUTO) 37.7 %; MEAN CORPUSCULAR HEMOGLOBIN 29.6 pg (27.0-31.0); MEAN CORPUSCULAR HGB CONC 32.3 g/dL (32.0-36.0); MEAN CORPUSCULAR VOLUME 91.6 fL (81.0-99.0); MEAN PLATELET VOLUME 10.6 fL (7.9-10.8); MONOCYTES # (AUTO) 0.6 10^3/uL (0.0-1.0); MONOCYTES % (AUTO) 11.4 %; NEUTROPHILS # (AUTO) 2.5 10^3/uL (1.5-6.6); NEUTROPHILS % (AUTO) 48.7 %; PLT - PLATELET COUNT 287 10^3/uL (130-450); RED BLOOD COUNT 4.42 10^6/uL (4.20-5.40); RED CELL DISTRIBUTION WIDTH 14.4 % (12.0-15.0); WHITE BLOOD COUNT 5.1 x10^3/uL (4.8-10.8)
[2019-09-08 13:12] LABS: ALBUMIN 4.1 g/dL (3.2-5.5); ALBUMIN/GLOBULIN RATIO 1.4 (1.0-2.2); ALKALINE PHOSPHATASE 64 IU/L (42-121); ALT ALANINE AMINOTRANSFERASE 27 IU/L (10-60); AST ASPARTATE AMINOTRANSFERASE 23 IU/L (10-42); BUN - BLOOD UREA NITROGEN 13 mg/dL (6-20); CALCIUM 9.4 mg/dL (8.5-10.3); CARBON DIOXIDE - CO2 29 mmol/L (21-32); CHLORIDE 103 mmol/L (101-111); CHOL/HDL RATIO 3.7 (<4.4); CHOLESTEROL 202 mg/dL; CREATININE 0.6 mg/dL (0.4-1.0); GFR - MDRD 97 (>89); GLUCOSE 106 mg/dL (70-100); HDL CHOLESTEROL 55 mg/dL; LDL CHOLESTEROL,CALCULATED 120 mg/dL; LDL/HDL RATIO 2.2 (<4.4); SODIUM 140 mmol/L (135-145); VLDL CHOLESTEROL 27 mg/dL
== END 2019-09-08 23:59 | disposition home or self-care (01) ==
LOC: LAB.WCP 08:00
PROVIDERS: ATTEND Family Medicine
DX: I10 Essential (primary) hypertension (principal); E78.5 Hyperlipidemia, unspecified; E03.9 Hypothyroidism, unspecified
CPT/HCPCS: 36415; 80053; 80061; 83721; 84443; 85025

== ENCOUNTER 2019-12-02 09:50 | Outpatient (CLI) | payer MEDICARE ==
[2019-12-02 13:12] LABS: BASOPHILS # (AUTO) 0.1 10^3/uL (0.0-0.1); BASOPHILS % (AUTO) 1.2 %; EOSINOPHILS # (AUTO) 0.1 10^3/uL (0.0-0.7); EOSINOPHILS % (AUTO) 1.7 %; HGB - HEMOGLOBIN 14.8 g/dL (12.0-16.0); LYMPHOCYTES # (AUTO) 1.8 10^3/uL (1.5-3.5); LYMPHOCYTES % (AUTO) 29.6 %; MEAN CORPUSCULAR HEMOGLOBIN 30.2 pg (27.0-31.0); MEAN CORPUSCULAR VOLUME 91.4 fL (81.0-99.0); MEAN PLATELET VOLUME 10.5 fL (7.9-10.8); MONOCYTES # (AUTO) 0.6 10^3/uL (0.0-1.0); MONOCYTES % (AUTO) 10.1 %; NEUTROPHILS # (AUTO) 3.4 10^3/uL (1.5-6.6); NEUTROPHILS % (AUTO) 56.7 %; PLT - PLATELET COUNT 291 10^3/uL (130-450); RED CELL DISTRIBUTION WIDTH 12.6 % (12.0-15.0)
[2019-12-02 14:01] LABS: ALBUMIN 4.3 g/dL (3.2-5.5); ALBUMIN/GLOBULIN RATIO 1.4 (1.0-2.2); ALKALINE PHOSPHATASE 66 IU/L (42-121); ALT ALANINE AMINOTRANSFERASE 34 IU/L (10-60); AST ASPARTATE AMINOTRANSFERASE 24 IU/L (10-42); BILIRUBIN,TOTAL 0.8 mg/dL (0.2-1.0); BUN - BLOOD UREA NITROGEN 10 mg/dL (6-20); CALCIUM 9.6 mg/dL (8.5-10.3); CARBON DIOXIDE - CO2 26 mmol/L (21-32); CHLORIDE 105 mmol/L (101-111); CREATININE 0.6 mg/dL (0.4-1.0); GFR - MDRD 97 (>89); GLUCOSE 95 mg/dL (70-100); SODIUM 140 mmol/L (135-145); TOTAL PROTEIN 7.4 g/dL (6.7-8.2)
[2019-12-02 14:50] LABS: CRP - C-REACTIVE PROTEIN < 1.0 mg/dL (0-1.0)
== END 2019-12-02 23:59 | disposition home or self-care (01) ==
LOC: LAB.WCP 09:50
PROVIDERS: ATTEND Family Medicine
DX: R51 Headache (principal)
CPT/HCPCS: 36415; 80053; 85025; 85651; 86140

== ENCOUNTER 2020-04-18 09:37 | Outpatient (CLI) | payer MEDICARE ==
--- NOTE | 2020-04-18 11:32 | XRAY Report ---
Reason: RIGHT HIP PAIN Procedure Date: 04/18/2020 Accession Number: [id number] / [id number] Procedure: WCP - Hip 1 View RT CPT Code: Final Report FULL RESULT: PROCEDURE: Hip 1 View RT INDICATIONS: RIGHT HIP PAIN TECHNIQUE: 2 views of the hip were acquired. COMPARISON: None FINDINGS: Bones: No fractures or dislocations. Note is made of a moderate degree of right hip joint osteoarthritis and only a slight degree of degenerative change is noted at the left hip. No suspicious bony lesions. The visualized pelvic ring appears intact. Soft tissues: No suspicious soft tissue calcifications or masses. IMPRESSION: Moderate right hip osteoarthritis, without effusion or loose body or evidence of recent trauma. Minimal osteoarthritis left hip. Reviewed by: Cipriano Winter MD on 04/18/2020 11:30 AM PDT Approved by: Cipriano Winter MD on 04/18/2020 11:30 AM PDT Station ID: [id number]
== END 2020-04-18 23:59 | disposition home or self-care (01) ==
LOC: DI.WCP 09:37
PROVIDERS: ATTEND Family Medicine
DX: M16.0 Bilateral primary osteoarthritis of hip (principal)

== ENCOUNTER 2021-01-17 08:00 | Outpatient (CLI) | payer MEDICARE ==
[2021-01-17 12:24] LABS: ALBUMIN 4.3 g/dL (3.2-5.5); ALBUMIN/GLOBULIN RATIO 1.4 (1.0-2.2); ALKALINE PHOSPHATASE 66 IU/L (42-121); ALT ALANINE AMINOTRANSFERASE 33 IU/L (10-60); AST ASPARTATE AMINOTRANSFERASE 25 IU/L (10-42); BILIRUBIN,TOTAL 1.1 mg/dL (0.2-1.0); BUN - BLOOD UREA NITROGEN 12 mg/dL (6-20); CALCIUM 9.8 mg/dL (8.5-10.3); CARBON DIOXIDE - CO2 27 mmol/L (21-32); CHLORIDE 102 mmol/L (101-111); CHOL/HDL RATIO 3.8 (<4.4); CHOLESTEROL 231 mg/dL; CREATININE 0.6 mg/dL (0.4-1.0); GFR - MDRD 97 (>89); GLUCOSE 93 mg/dL (70-100); HDL CHOLESTEROL 61 mg/dL; LDL CHOLESTEROL,CALCULATED 140 mg/dL; LDL/HDL RATIO 2.3 (<4.4); POTASSIUM 3.9 mmol/L (3.5-5.0); SODIUM 139 mmol/L (135-145); TOTAL PROTEIN 7.3 g/dL (6.7-8.2); TRIGLYCERIDES 152 mg/dL; VLDL CHOLESTEROL 30 mg/dL
[2021-01-17 12:36] LABS: THYROID STIMULATING HORMONE 2.32 uIU/mL (0.34-5.60)
[2021-01-17 13:13] LABS: BASOPHILS # (AUTO) 0.1 10^3/uL (0.0-0.1); BASOPHILS % (AUTO) 1.1 %; EOSINOPHILS # (AUTO) 0.1 10^3/uL (0.0-0.7); EOSINOPHILS % (AUTO) 1.6 %; HCT - HEMATOCRIT 43.5 % (37.0-47.0); HGB - HEMOGLOBIN 14.9 g/dL (12.0-16.0); LYMPHOCYTES # (AUTO) 1.4 10^3/uL (1.5-3.5); LYMPHOCYTES % (AUTO) 31.9 %; MEAN CORPUSCULAR HEMOGLOBIN 32.7 pg (27.0-31.0); MEAN CORPUSCULAR HGB CONC 34.3 g/dL (32.0-36.0); MEAN CORPUSCULAR VOLUME 95.4 fL (81.0-99.0); MEAN PLATELET VOLUME 10.9 fL (7.9-10.8); MONOCYTES # (AUTO) 0.6 10^3/uL (0.0-1.0); MONOCYTES % (AUTO) 12.4 %; NEUTROPHILS # (AUTO) 2.3 10^3/uL (1.5-6.6); NEUTROPHILS % (AUTO) 52.5 %; PLT - PLATELET COUNT 259 10^3/uL (130-450); RED BLOOD COUNT 4.56 10^6/uL (4.20-5.40); RED CELL DISTRIBUTION WIDTH 12.9 % (12.0-15.0); WHITE BLOOD COUNT 4.4 x10^3/uL (4.8-10.8)
== END 2021-01-17 23:59 | disposition home or self-care (01) ==
LOC: LAB.WCP 08:00
PROVIDERS: ATTEND Family Medicine
DX: I10 Essential (primary) hypertension (principal); E78.5 Hyperlipidemia, unspecified; E03.9 Hypothyroidism, unspecified
CPT/HCPCS: 36415; 80053; 80061; 83721; 84443; 85025

== ENCOUNTER 2021-07-30 08:38 | Outpatient (CLI) | payer MEDICARE ==
[2021-07-30 11:27] LABS: BASOPHILS # (AUTO) 0.1 10^3/uL (0.0-0.1); BASOPHILS % (AUTO) 1.1 %; EOSINOPHILS # (AUTO) 0.1 10^3/uL (0.0-0.7); EOSINOPHILS % (AUTO) 1.7 %; HGB - HEMOGLOBIN 14.5 g/dL (12.0-16.0); LYMPHOCYTES # (AUTO) 1.5 10^3/uL (1.5-3.5); LYMPHOCYTES % (AUTO) 22.9 %; MEAN CORPUSCULAR HEMOGLOBIN 31.7 pg (27.0-31.0); MEAN CORPUSCULAR HGB CONC 33.7 g/dL (32.0-36.0); MEAN CORPUSCULAR VOLUME 93.9 fL (81.0-99.0); MEAN PLATELET VOLUME 11.1 fL (7.9-10.8); MONOCYTES # (AUTO) 0.8 10^3/uL (0.0-1.0); MONOCYTES % (AUTO) 13.3 %; NEUTROPHILS # (AUTO) 3.8 10^3/uL (1.5-6.6); NEUTROPHILS % (AUTO) 60.7 %; PLT - PLATELET COUNT 254 10^3/uL (130-450); RED BLOOD COUNT 4.58 10^6/uL (4.20-5.40); RED CELL DISTRIBUTION WIDTH 13.6 % (12.0-15.0); WHITE BLOOD COUNT 6.3 x10^3/uL (4.8-10.8)
[2021-07-30 11:48] LABS: ALBUMIN 4.4 g/dL (3.2-5.5); ALBUMIN/GLOBULIN RATIO 1.4 (1.0-2.2); ALKALINE PHOSPHATASE 76 IU/L (42-121); ALT ALANINE AMINOTRANSFERASE 25 IU/L (10-60); AST ASPARTATE AMINOTRANSFERASE 20 IU/L (10-42); BILIRUBIN,TOTAL 1.4 mg/dL (0.2-1.0); BUN - BLOOD UREA NITROGEN 12 mg/dL (6-20); CALCIUM 9.8 mg/dL (8.5-10.3); CARBON DIOXIDE - CO2 26 mmol/L (21-32); CHLORIDE 102 mmol/L (101-111); CHOL/HDL RATIO 3.8 (<4.4); CHOLESTEROL 212 mg/dL; CREATININE 0.7 mg/dL (0.4-1.0); GFR - MDRD 81 (>89); GLUCOSE 101 mg/dL (70-100); HDL CHOLESTEROL 56 mg/dL; LDL CHOLESTEROL,CALCULATED 129 mg/dL; LDL/HDL RATIO 2.3 (<4.4); POTASSIUM 4.2 mmol/L (3.5-5.0); SODIUM 138 mmol/L (135-145); TOTAL PROTEIN 7.6 g/dL (6.7-8.2); TRIGLYCERIDES 134 mg/dL; VLDL CHOLESTEROL 27 mg/dL
[2021-07-30 12:08] LABS: THYROID STIMULATING HORMONE 3.31 uIU/mL (0.34-5.60)
== END 2021-07-30 23:59 | disposition home or self-care (01) ==
LOC: LAB.WCP 08:38
PROVIDERS: ATTEND Family Medicine
DX: E78.5 Hyperlipidemia, unspecified (principal); E03.9 Hypothyroidism, unspecified; I10 Essential (primary) hypertension
CPT/HCPCS: 36415; 80053; 80061; 83721; 84443; 85025

== ENCOUNTER 2022-02-05 12:49 | Outpatient (CLI) | payer MEDICARE ==
--- NOTE | 2022-02-05 17:05 | XRAY Report ---
PROCEDURE: Chest 2 View X-Ray INDICATIONS: DYSPNEA ON EXERTION TECHNIQUE: 2 view(s) of the chest. COMPARISON: 02/02/2015.. FINDINGS: Surgical changes and devices: Surgical clips in the left axilla. Lungs and pleura: No pleural effusions or pneumothorax. Lungs are clear. Mediastinum: Mediastinal contours are normal. Heart size is normal. Bones and chest wall: No suspicious bony abnormalities. Soft tissues appear unremarkable. IMPRESSION: No acute cardiopulmonary disease process. Reviewed by: Pat Dutta MD, PhD on 02/05/2022 5:04 PM PDT Approved by: Pat Dutta MD, PhD on 02/05/2022 5:04 PM PDT Station ID: [id number]
== END 2022-02-05 12:50 | disposition home or self-care (01) ==
LOC: DI.N 12:49
PROVIDERS: ATTEND Family Medicine
DX: R06.09 Other forms of dyspnea (principal)
CPT/HCPCS: 36415; 80048; 83880; 85025; 85027

== ENCOUNTER 2022-02-05 12:56 | Outpatient (CLI) | payer MEDICARE ==
[2022-02-05 17:46] LABS: HCT - HEMATOCRIT 39.3 % (37.0-47.0); HGB - HEMOGLOBIN 13.2 g/dL (12.0-16.0); MEAN CORPUSCULAR HEMOGLOBIN 30.1 pg (27.0-31.0); MEAN CORPUSCULAR HGB CONC 33.6 g/dL (32.0-36.0); MEAN CORPUSCULAR VOLUME 89.7 fL (81.0-99.0); MEAN PLATELET VOLUME 11.1 fL (7.9-10.8); RED BLOOD COUNT 4.38 10^6/uL (4.20-5.40); RED CELL DISTRIBUTION WIDTH 13.3 % (12.0-15.0); WHITE BLOOD COUNT 6.2 x10^3/uL (4.8-10.8)
[2022-02-05 18:04] LABS: CALCIUM 9.9 mg/dL (8.5-10.3); CREATININE 0.9 mg/dL (0.4-1.0)
== END 2022-02-05 12:57 | disposition home or self-care (01) ==
LOC: LAB.N 12:56
PROVIDERS: ATTEND Family Medicine
DX: R06.09 Other forms of dyspnea (principal)
CPT/HCPCS: 36415; 80048; 83880; 85025; 85027

== ENCOUNTER 2022-04-02 09:28 | Outpatient (CLI) | payer MEDICARE | END 2022-04-02 09:29 | disposition home or self-care (01) | LOC: RT 09:28 | DX: I48.91 Unspecified atrial fibrillation (principal) | CPT/HCPCS: 93005 ==

== ENCOUNTER 2022-06-10 08:16 | Outpatient (CLI) | payer MEDICARE ==
--- NOTE | 2022-06-10 12:51 | XRAY Report ---
PROCEDURE: Chest 2 View X-Ray INDICATIONS: Shortness of breath. TECHNIQUE: 2 view(s) of the chest. COMPARISON: Chest radiograph 02/05/2022. FINDINGS: Surgical changes and devices: Metal clips project over the right lateral chest/axilla as before. Lungs and pleura: No pleural effusions or pneumothorax. Lungs are clear. Mediastinum: Mediastinal contours are normal. Heart size is normal. Bones and chest wall: No suspicious bony abnormalities. Soft tissues appear unremarkable. IMPRESSION: No acute cardiopulmonary abnormality. Reviewed by: Jose Lujan MD on 06/10/2022 12:50 PM PDT Approved by: Jose Lujan MD on 06/10/2022 12:50 PM PDT Station ID: [id number]
== END 2022-06-10 08:17 | disposition home or self-care (01) ==
LOC: DI.N 08:16
PROVIDERS: ATTEND Nurse Practitioner
DX: R06.02 Shortness of breath (principal); I10 Essential (primary) hypertension; E78.5 Hyperlipidemia, unspecified; R73.03 Prediabetes; E03.9 Hypothyroidism, unspecified
CPT/HCPCS: 36415; 80053; 80061; 83036; 83721; 83880; 84439; 84443; 85025

== ENCOUNTER 2022-06-10 08:22 | Outpatient (CLI) | payer MEDICARE ==
[2022-06-10 12:19] LABS: BASOPHILS # (AUTO) 0.1 10^3/uL (0.0-0.1); BASOPHILS % (AUTO) 1.1 %; EOSINOPHILS # (AUTO) 0.1 10^3/uL (0.0-0.7); HGB - HEMOGLOBIN 14.5 g/dL (12.0-16.0); LYMPHOCYTES # (AUTO) 1.7 10^3/uL (1.5-3.5); LYMPHOCYTES % (AUTO) 26.3 %; MEAN CORPUSCULAR VOLUME 84.9 fL (81.0-99.0); MEAN PLATELET VOLUME 11.6 fL (7.9-10.8); MONOCYTES # (AUTO) 0.6 10^3/uL (0.0-1.0); MONOCYTES % (AUTO) 9.4 %; NEUTROPHILS # (AUTO) 3.9 10^3/uL (1.5-6.6); NEUTROPHILS % (AUTO) 61.9 %; PLT - PLATELET COUNT 243 10^3/uL (130-450); RED BLOOD COUNT 5.18 10^6/uL (4.20-5.40); WHITE BLOOD COUNT 6.3 x10^3/uL (4.8-10.8)
[2022-06-10 12:40] LABS: ALBUMIN 4.1 g/dL (3.2-5.5); ALBUMIN/GLOBULIN RATIO 1.3 (1.0-2.2); ALKALINE PHOSPHATASE 69 IU/L (42-121); ALT ALANINE AMINOTRANSFERASE 21 IU/L (10-60); AST ASPARTATE AMINOTRANSFERASE 19 IU/L (10-42); BILIRUBIN,TOTAL 0.8 mg/dL (0.2-1.0); BUN - BLOOD UREA NITROGEN 14 mg/dL (6-20); CALCIUM 9.4 mg/dL (8.5-10.3); CARBON DIOXIDE - CO2 28 mmol/L (21-32); CHLORIDE 101 mmol/L (101-111); CHOL/HDL RATIO 3.4 (<4.4); CHOLESTEROL 203 mg/dL; CREATININE 0.7 mg/dL (0.4-1.0); GFR - MDRD 81 (>89); GLUCOSE 102 mg/dL (70-100); HDL CHOLESTEROL 60 mg/dL; LDL CHOLESTEROL,CALCULATED 114 mg/dL; LDL/HDL RATIO 1.9 (<4.4); SODIUM 138 mmol/L (135-145); TOTAL PROTEIN 7.2 g/dL (6.7-8.2); TRIGLYCERIDES 144 mg/dL; VLDL CHOLESTEROL 29 mg/dL
[2022-06-10 12:46] LABS: THYROID STIMULATING HORMONE 5.59 uIU/mL (0.34-5.60)
[2022-06-10 12:49] LABS: FREE T4 (FREE THYROXINE) 1.1 ng/dL (0.58-1.64)
[2022-06-10 19:53] LABS: ESTIMATED AVERAGE GLUCOSE 131 mg/dL (70-100); HEMOGLOBIN A1c% 6.2 % (4.27-6.07)
== END 2022-06-10 08:23 | disposition home or self-care (01) ==
LOC: LAB.N 08:22
PROVIDERS: ATTEND Nurse Practitioner
DX: I10 Essential (primary) hypertension (principal); E78.5 Hyperlipidemia, unspecified; R73.03 Prediabetes; R06.02 Shortness of breath; E03.9 Hypothyroidism, unspecified
CPT/HCPCS: 36415; 80053; 80061; 83036; 83721; 83880; 84439; 84443; 85025

== ENCOUNTER 2022-06-18 10:40 | Outpatient (CLI) | payer MEDICARE ==
--- NOTE | 2022-06-19 12:53 | Mammography Report ---
UNILATERAL RIGHT DIGITAL SCREENING MAMMOGRAM 3D/2D: 06/18/2022 CLINICAL: Routine screening. Personal history of left breast cancer. Comparison is made to exams dated: 07/20/2019 mammogram, 06/30/2018 mammogram, and 06/03/2017 mammogra m - [facility]. The right breast is heterogeneously dense, which may obscure small masses (category c / 51-75% gland ular tissue). No significant masses, calcifications, or other findings are seen in the breast. There has been no significant interval change. IMPRESSION: NEGATIVE There is no mammographic evidence of malignancy. A 1 year screening mammogram is recommended. This exam was interpreted at Station ID: [id number]. NOTE: For mammograms, a report in lay terms will be sent to the patient. Approximately 15% of breast malignancies will not be visualized mammographically. In the management of a palpable breast mass, a negative mammogram must not discourage biopsy of a clinically suspicious lesion. Electronically Signed By: Ericka cuellar/yung:06/18/2022 14:15:33 ACR BI-RADS Category 1: Negative 3341F PARENCHYMAL PATTERN: (D) - The breast(s) demonstrate(s) heterogeneously dense fibroglandular parenriquey ma. BI-RADS CATEGORY: (1) - 1 RECOMMENDATION: (ANNUAL) - Recommend routine annual screening mammography. [id number] 1 year screening LATERALITY: (B)
== END 2022-06-18 10:41 | disposition home or self-care (01) ==
LOC: DI.N 10:40
PROVIDERS: ATTEND Nurse Practitioner
DX: Z12.31 Encounter for screening mammogram for malignant neoplasm of breast (principal); Z85.3 Personal history of malignant neoplasm of breast; Z90.12 Acquired absence of left breast and nipple

== ENCOUNTER 2022-09-17 08:44 | Outpatient (CLI) | payer MEDICARE ==
[2022-09-17 11:45] LABS: BASOPHILS # (AUTO) 0.1 10^3/uL (0.0-0.1); BASOPHILS % (AUTO) 1.4 %; EOSINOPHILS # (AUTO) 0.1 10^3/uL (0.0-0.7); HCT - HEMATOCRIT 46.1 % (37.0-47.0); HGB - HEMOGLOBIN 15.4 g/dL (12.0-16.0); LYMPHOCYTES # (AUTO) 1.8 10^3/uL (1.5-3.5); LYMPHOCYTES % (AUTO) 34.6 %; MEAN CORPUSCULAR HEMOGLOBIN 31.1 pg (27.0-31.0); MEAN CORPUSCULAR HGB CONC 33.4 g/dL (32.0-36.0); MEAN CORPUSCULAR VOLUME 93.1 fL (81.0-99.0); MEAN PLATELET VOLUME 10.7 fL (7.9-10.8); MONOCYTES # (AUTO) 0.6 10^3/uL (0.0-1.0); MONOCYTES % (AUTO) 10.7 %; NEUTROPHILS # (AUTO) 2.7 10^3/uL (1.5-6.6); NEUTROPHILS % (AUTO) 51.7 %; PLT - PLATELET COUNT 260 10^3/uL (130-450); RED BLOOD COUNT 4.95 10^6/uL (4.20-5.40); RED CELL DISTRIBUTION WIDTH 14.4 % (12.0-15.0); WHITE BLOOD COUNT 5.1 x10^3/uL (4.8-10.8)
[2022-09-17 12:29] LABS: ALBUMIN 4.5 g/dL (3.2-5.5); ALBUMIN/GLOBULIN RATIO 1.5 (1.0-2.2); BILIRUBIN,TOTAL 1.1 mg/dL (0.2-1.0); CALCIUM 9.9 mg/dL (8.5-10.3); CREATININE 0.9 mg/dL (0.4-1.0); TOTAL PROTEIN 7.6 g/dL (6.7-8.2)
[2022-09-17 12:36] LABS: ESTIMATED AVERAGE GLUCOSE 123 mg/dL (70-100); HEMOGLOBIN A1c% 5.9 % (4.27-6.07)
[2022-09-17 12:46] LABS: THYROID STIMULATING HORMONE 9.69 uIU/mL (0.34-5.60)
[2022-09-17 12:48] LABS: FREE T4 (FREE THYROXINE) 0.94 ng/dL (0.58-1.64)
== END 2022-09-17 08:45 | disposition home or self-care (01) ==
LOC: LAB.N 08:44
PROVIDERS: ATTEND Nurse Practitioner
DX: I11.0 Hypertensive heart disease with heart failure (principal); I48.91 Unspecified atrial fibrillation; R73.03 Prediabetes; D68.69 Other thrombophilia; R73.9 Hyperglycemia, unspecified
CPT/HCPCS: 36415; 80053; 83036; 84439; 84443; 85025

== ENCOUNTER 2022-11-10 08:54 | Outpatient (CLI) | payer MEDICARE ==
[2022-11-10 12:08] LABS: BASOPHILS # (AUTO) 0.1 10^3/uL (0.0-0.1); EOSINOPHILS # (AUTO) 0.1 10^3/uL (0.0-0.7); EOSINOPHILS % (AUTO) 1.4 %; HCT - HEMATOCRIT 44.5 % (37.0-47.0); HGB - HEMOGLOBIN 14.9 g/dL (12.0-16.0); LYMPHOCYTES # (AUTO) 2.2 10^3/uL (1.5-3.5); LYMPHOCYTES % (AUTO) 44.5 %; MEAN CORPUSCULAR HEMOGLOBIN 31.4 pg (27.0-31.0); MEAN CORPUSCULAR HGB CONC 33.5 g/dL (32.0-36.0); MEAN CORPUSCULAR VOLUME 93.7 fL (81.0-99.0); MEAN PLATELET VOLUME 11.2 fL (7.9-10.8); MONOCYTES # (AUTO) 0.6 10^3/uL (0.0-1.0); MONOCYTES % (AUTO) 11.5 %; PLT - PLATELET COUNT 241 10^3/uL (130-450); RED BLOOD COUNT 4.75 10^6/uL (4.20-5.40); RED CELL DISTRIBUTION WIDTH 12.3 % (12.0-15.0)
[2022-11-10 12:24] LABS: ALBUMIN/GLOBULIN RATIO 1.3 (1.0-2.2); ALKALINE PHOSPHATASE 63 IU/L (42-121); ALT ALANINE AMINOTRANSFERASE 38 IU/L (10-60); AST ASPARTATE AMINOTRANSFERASE 30 IU/L (10-42); BILIRUBIN,TOTAL 0.9 mg/dL (0.2-1.0); BUN - BLOOD UREA NITROGEN 11 mg/dL (6-20); CALCIUM 9.8 mg/dL (8.5-10.3); CARBON DIOXIDE - CO2 26 mmol/L (21-32); CHLORIDE 102 mmol/L (101-111); CHOL/HDL RATIO 3.9 (<4.4); CHOLESTEROL 204 mg/dL; CREATININE 0.8 mg/dL (0.4-1.0); GFR - MDRD 69 (>89); GLUCOSE 111 mg/dL (70-100); HDL CHOLESTEROL 52 mg/dL; LDL CHOLESTEROL,CALCULATED 126 mg/dL; LDL/HDL RATIO 2.4 (<4.4); SODIUM 139 mmol/L (135-145); TOTAL PROTEIN 7.2 g/dL (6.7-8.2); TRIGLYCERIDES 131 mg/dL; VLDL CHOLESTEROL 26 mg/dL
[2022-11-10 12:31] LABS: THYROID STIMULATING HORMONE 6.4 uIU/mL (0.34-5.60)
[2022-11-10 12:35] LABS: FREE T4 (FREE THYROXINE) 0.96 ng/dL (0.58-1.64)
== END 2022-11-10 08:55 | disposition home or self-care (01) ==
LOC: LAB.N 08:54
PROVIDERS: ATTEND Family Medicine
DX: I10 Essential (primary) hypertension (principal); E78.5 Hyperlipidemia, unspecified; E03.9 Hypothyroidism, unspecified
CPT/HCPCS: 36415; 80053; 80061; 83721; 84439; 84443; 85025

== ENCOUNTER 2022-11-26 09:42 | Outpatient (CLI) | payer MEDICARE ==
--- NOTE | 2022-11-27 09:19 | Ultrasound Report ---
PROCEDURE: Chest INDICATIONS: LIPOMA TECHNIQUE: Real-time scanning was performed of interest with imaging documentation. COMPARISON: None. FINDINGS: Ultrasound was performed in the subxiphoid area where the patient feels a subcutaneous dis ease nodule. There is a 1.4 x 1.0 x 1.0 cm hypoechoic nodule within the subcutaneous tissue in the fontana bxiphoid area, correlating with the palpable abnormality. It is compatible with a small subcutaneous lipoma. IMPRESSION: The palpable nodule is compatible with a small lipoma. If there is pain or rapid growth, consider fol low-up imaging. Reviewed by: Margot Sellers MD on 11/27/2022 9:18 AM [facility] Approved by: Margot Sellers MD on 11/27/2022 9:18 AM PST Station ID: [id number]
== END 2022-11-26 09:43 | disposition home or self-care (01) ==
LOC: DI 09:42
PROVIDERS: ATTEND Nurse Practitioner
DX: D17.1 Benign lipomatous neoplasm of skin and subcutaneous tissue of trunk (principal)

== ENCOUNTER 2023-03-06 08:00 | Outpatient (CLI) | payer MEDICARE ==
[2023-03-06 21:07] LABS: BILIRUBIN,URINE NEGATIVE (NEGATIVE); GLUCOSE, URINE (UA) NEGATIVE (NEGATIVE); KETONES,URINE (UA) NEGATIVE (NEGATIVE); LEUKOCYTE ESTERASE, URINE MODERATE (NEGATIVE); NITRITE,URINE POSITIVE (NEGATIVE); OCCULT BLOOD,URINE LARGE (NEGATIVE); PH,URINE 5.5 PH (5.0-7.5); PROTEIN,URINE 100 mg/dL (NEGATIVE); UROBILINOGEN,URINE 0.2 (NORMAL) E.U./dL (NORMAL)
[2023-03-06 21:10] LABS: CLARITY,URINE CLOUDY (CLEAR)
[2023-03-06 21:19] LABS: RBC,URINE TNTC /HPF (0-5); SQUAMOUS EPITHELIAL CELL,UR RARE Squamous (<= Few); WBC,URINE >25 /HPF (0-5)
[2023-03-06 21:20] LABS: BACTERIA,URINE Moderate /HPF (None Seen)
== END 2023-03-06 23:59 | disposition home or self-care (01) ==
LOC: LAB.N 08:00
PROVIDERS: ATTEND Emergency Medicine
DX: R30.0 Dysuria (principal)
CPT/HCPCS: 81001; 87086; 87181

== ENCOUNTER 2023-06-09 09:22 | Outpatient (CLI) | payer MEDICARE ==
--- NOTE | 2023-06-10 09:28 | Mammography Report ---
UNILATERAL RIGHT DIGITAL SCREENING MAMMOGRAM 3D/2D: 06/09/2023 CLINICAL: Routine screening. Personal history of left breast cancer. Comparison is made to exams dated: 06/18/2022 mammogram, 07/20/2019 mammogram, 06/30/2018 mammogram, mammogram, 08/07/2015 mammogram, and 07/19/2014 mammogram - [facility]. The right breast is heterogeneously dense, which may obscure small masses (category c / 51-75% glandu lar tissue). No significant masses, calcifications, or other findings are seen in the breast. There has been no significant interval change. IMPRESSION: NEGATIVE There is no mammographic evidence of malignancy. A 1 year screening mammogram is recommended. This exam was interpreted at Station ID: Unknown. NOTE: For mammograms, a report in lay terms will be sent to the patient. Approximately 15% of breast malignancies will not be visualized mammographically. In the management of a palpable breast mass, a negative mammogram must not discourage biopsy of a clinically suspicious lesion. Electronically Signed By: Ericka cuellar/:06/10/2023 09:13:10 Entry: - 06/10/2023 09:13:10 letter sent: No_Letter ACR BI-RADS Category 1: Negative 3341F PARENCHYMAL PATTERN: (D) - The breast(s) demonstrate(s) heterogeneously dense fibroglandular vanessa james. BI-RADS CATEGORY: (1) - 1 Mammogram [id number] 1 year screening LATERALITY: (B)
== END 2023-06-09 09:23 | disposition home or self-care (01) ==
LOC: DI.N 09:22
DX: Z12.31 Encounter for screening mammogram for malignant neoplasm of breast (principal); Z85.3 Personal history of malignant neoplasm of breast

== ENCOUNTER 2023-07-15 10:27 | Outpatient (CLI) | payer MEDICARE ==
--- NOTE | 2023-07-15 11:47 | XRAY Report ---
PROCEDURE: Shoulder 3 View LT INDICATIONS: SHOULDER PAIN, LEFT TECHNIQUE: 4 views of the shoulder were acquired. COMPARISON: None. FINDINGS: Bones: No fractures or dislocations. No suspicious bony lesions. Visualized ribs appear intact. G lenohumeral and acromioclavicular arthritic change. Soft tissues: No suspicious soft tissue calcifications. The visualized lungs are within normal limi ts. IMPRESSION: Glenohumeral and acromioclavicular arthritic change. Reviewed by: Honey Padron MD on 07/15/2023 11:46 AM PDT Approved by: Honey Padron MD on 07/15/2023 11:46 AM PDT Station ID: [id number]
== END 2023-07-15 10:28 | disposition home or self-care (01) ==
LOC: DI 10:27
PROVIDERS: ATTEND Physician Assistant
DX: M19.012 Primary osteoarthritis, left shoulder (principal)

== ENCOUNTER 2023-08-18 08:00 | Outpatient (CLI) | payer MEDICARE ==
[2023-08-18 21:20] LABS: BASOPHILS # (AUTO) 0.1 10^3/uL (0.0-0.1); BASOPHILS % (AUTO) 0.7 %; EOSINOPHILS # (AUTO) 0.1 10^3/uL (0.0-0.7); EOSINOPHILS % (AUTO) 0.9 %; HCT - HEMATOCRIT 41.2 % (37.0-47.0); HGB - HEMOGLOBIN 13.6 g/dL (12.0-16.0); LYMPHOCYTES # (AUTO) 1.9 10^3/uL (1.5-3.5); LYMPHOCYTES % (AUTO) 22.1 %; MEAN CORPUSCULAR VOLUME 93.8 fL (81.0-99.0); MEAN PLATELET VOLUME 10.1 fL (7.9-10.8); MONOCYTES # (AUTO) 0.8 10^3/uL (0.0-1.0); MONOCYTES % (AUTO) 9.4 %; NEUTROPHILS # (AUTO) 5.8 10^3/uL (1.5-6.6); NEUTROPHILS % (AUTO) 66.6 %; PLT - PLATELET COUNT 268 10^3/uL (130-450); RED BLOOD COUNT 4.39 10^6/uL (4.20-5.40); WHITE BLOOD COUNT 8.8 x10^3/uL (4.8-10.8)
[2023-08-18 21:27] LABS: ALBUMIN 4.3 g/dL (3.2-5.5); ALBUMIN/GLOBULIN RATIO 1.9 (1.0-2.2); BILIRUBIN,TOTAL 0.6 mg/dL (0.2-1.0); CREATININE 1.1 mg/dL (0.6-1.3); POTASSIUM 3.6 mmol/L (3.5-4.5); TOTAL PROTEIN 6.6 g/dL (6.4-8.9)
[2023-08-19 11:02] LABS: ESTIMATED AVERAGE GLUCOSE 117 mg/dL (70-100); HEMOGLOBIN A1c% 5.7 % (4.27-6.07)
== END 2023-08-18 23:59 | disposition home or self-care (01) ==
LOC: LAB.N 08:00
PROVIDERS: ATTEND Physician Assistant Medical
DX: R80.9 Proteinuria, unspecified (principal); N30.90 Cystitis, unspecified without hematuria
CPT/HCPCS: 36415; 80053; 83036; 85025; 87077; 87086; 87181

== ENCOUNTER 2023-08-20 07:58 | Outpatient (CLI) | payer MEDICARE ==
[2023-08-20 12:22] LABS: THYROID STIMULATING HORMONE 1.07 uIU/mL (0.34-5.60)
[2023-08-20 12:26] LABS: ALBUMIN 4.5 g/dL (3.2-5.5); ALBUMIN/GLOBULIN RATIO 1.8 (1.0-2.2); ALKALINE PHOSPHATASE 58 IU/L (42-121); ALT ALANINE AMINOTRANSFERASE 28 IU/L (10-60); AST ASPARTATE AMINOTRANSFERASE 22 IU/L (10-42); BILIRUBIN,TOTAL 0.5 mg/dL (0.2-1.0); BUN - BLOOD UREA NITROGEN 18 mg/dL (6-20); CALCIUM 10.1 mg/dL (8.5-10.3); CARBON DIOXIDE - CO2 23 mmol/L (21-32); CHLORIDE 104 mmol/L (101-111); CHOL/HDL RATIO 2.9 (<4.4); CHOLESTEROL 156 mg/dL; CREATININE 0.8 mg/dL (0.6-1.3); GFR - MDRD 69 (>89); GLUCOSE 103 mg/dL (74-104); HDL CHOLESTEROL 54 mg/dL; LDL CHOLESTEROL,CALCULATED 76 mg/dL; LDL/HDL RATIO 1.4 (<4.4); SODIUM 139 mmol/L (135-145); TRIGLYCERIDES 128 mg/dL (48-352); VLDL CHOLESTEROL 26 mg/dL
== END 2023-08-20 07:59 | disposition home or self-care (01) ==
LOC: LAB.N 07:58
PROVIDERS: ATTEND Nurse Practitioner Acute Care
DX: I47.10 Supraventricular tachycardia, unspecified (principal); E78.5 Hyperlipidemia, unspecified
CPT/HCPCS: 36415; 80053; 80061; 83721; 83735; 84443

== ENCOUNTER 2023-08-24 16:28 | Emergency (ER) | payer MEDICARE ==
--- NOTE | 2023-08-24 17:29 | ED Physician Documentation ---
PD HPI BACK PAIN - Stated complaint Stated Complaint: R LEG PX/NUMBNESS - Chief complaint Chief Complaint: Ext Problem - History obtained from History obtained from: Patient, Friend - History of Present Illness Timing - onset: Last night Timing - duration: Days (1) Timing - details: Gradual onset, Still present Location: Lower, Right Quality: Pain, Spasm, Sharp Associated symptoms: No: Fever, Weakness, Numbness, Incontinent of urine, Unable to urinate, Hematuria, Incontinent of stool Improves with: Rest, Position, Meds Worsened by: Movement Contributing factors: Other (The patient believes she may have been sitting too long watching football yesterday as a cause for her radiating pain) Similar symptoms before: Has not had sx before Recently seen: Not recently seen - Additional information Additional information: 83-year-old Elsie Dunham has a history of breast cancer, hypertension, hypothyroidism has developed a pain in her right leg radiating from her back down the outside of the leg and stopping before the knee. She denies changes to bowel or bladder. She believes the only type of injury she may have sustained is sitting at her desk for too long watching football. She denies any numbness or any weakness. She has not had this happen to her previously. 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 : None HEENT: None, Dental implants Psych: None Musculoskeletal: None Derm: None - Past Surgical History General: Appendectomy /TOLL TICKET CLERK: Dilation and currettage, Mastectomy HEENT: Tonsil/Adenoidectomy - Present Medications Home Medications: Ambulatory Orders Medication Instructions Recorded Confirmed Amlodipine/Atorvastatin 1 tab PO DAILY 02/20/17 08/28/18 [Amlodipine-Atorvast 5-40 mg] Levothyroxine Sodium 75 mcg PO QDAC 02/20/17 08/28/18 Metoprolol Succinate [Toprol Xl] 100 mg PO DAILY 02/20/17 08/28/18 hydroCHLOROthiazide 25 mg PO DAILY 08/28/18 08/28/18 [Hydrochlorothiazide] Clopidogrel [Plavix] 75 mg PO DAILY #30 tablet 08/29/18 Losartan [Cozaar] 50 mg PO DAILY 08/24/23 08/24/23 Rosuvastatin Calcium [Crestor] 40 mg PO DAILY 08/24/23 08/24/23 - Allergies Allergies/Adverse Reactions: Allergies Allergy/AdvReac Type Severity Reaction Status Date / Time acetaminophen [From Percocet] AdvReac Nausea Verified 08/24/23 16:43 oxycodone HCl * AdvReac Nausea Verified 08/24/23 16:43 [From Percocet] - Social History Does the pt smoke?: No Smoking Status: Never smoker Does the pt drink ETOH?: Yes Does the pt have substance abuse?: No - Immunizations Immunizations are current?: Yes - POLST Patient has POLST: No PD ED PE NORMAL - Vitals Vital signs reviewed: Yes (hypertensive) - General General: Alert and oriented X 3, No acute distress, Well developed/nourished, Other (83 y/o female appearing younger than her stated age. 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 She believes the injury may have been the result of excessive sitting in 1 position watching football. She is administered a dose of dexamethasone and Toradol and she does not want to take pain medication muscle relaxant. I have given her some instructions for sciatica. She does have a primary Verona Marinelli for follow-up Departure - Departure Disposition: 01 Home, Self Care Clinical Impression: Sciatica Qualifiers: Laterality: right Qualified Code(s): M54.31 - Sciatica, right side Condition: Stable Instructions: ED Sciatica Follow-Up: Verona Marinelli ARNP [Primary Care Provider] - Comments: Elsie, today it looks like you have sciatica, which is a pinched nerve in your back causing pain radiating past the nerve. We have given you a dose of dexamethasone and we expect this to help this evening with the pain. It is lydia rly typical for sciatica pain to last about 2 to 5 days. If you have pain that you are unable to become comfortable with a follow-up with your primary is indicated.
[2023-08-24] MEDS ORDERED: KETOROLAC 30 MG/ML VIAL IM STA (17:34)
[2023-08-24] MEDS ORDERED: DEXAMETHASONE 10 MG/ML VIAL PO STA (17:35)
[2023-08-24] MEDS ORDERED: CHERRY SYRUP 10 ML UDC PO ONE (17:35)
[2023-08-24 17:58] VITALS: BP 169/66; O2SAT 99
== END 2023-08-24 17:52 | disposition home or self-care (01) ==
LOC: ED 16:28
DX: M54.31 Sciatica, right side (principal)
CPT/HCPCS: 96372; 99283; A9270

== ENCOUNTER 2024-05-19 08:01 | Outpatient (CLI) | payer MEDICARE ==
[2024-05-19 12:19] LABS: ESTIMATED AVERAGE GLUCOSE 117 mg/dL (70-100); HEMOGLOBIN A1c% 5.7 % (4.27-6.07)
[2024-05-19 12:45] LABS: BASOPHILS # (AUTO) 0.1 10^3/uL (0.0-0.1); BASOPHILS % (AUTO) 1.4 %; EOSINOPHILS % (AUTO) 0.9 %; HCT - HEMATOCRIT 41.7 % (37.0-47.0); HGB - HEMOGLOBIN 14.1 g/dL (12.0-16.0); LYMPHOCYTES # (AUTO) 1.8 10^3/uL (1.5-3.5); LYMPHOCYTES % (AUTO) 40.7 %; MEAN CORPUSCULAR HEMOGLOBIN 31.5 pg (27.0-31.0); MEAN CORPUSCULAR HGB CONC 33.8 g/dL (32.0-36.0); MEAN CORPUSCULAR VOLUME 93.1 fL (81.0-99.0); MEAN PLATELET VOLUME 10.5 fL (7.9-10.8); MONOCYTES # (AUTO) 0.5 10^3/uL (0.0-1.0); MONOCYTES % (AUTO) 10.6 %; NEUTROPHILS % (AUTO) 45.7 %; PLT - PLATELET COUNT 261 10^3/uL (130-450); RED BLOOD COUNT 4.48 10^6/uL (4.20-5.40); RED CELL DISTRIBUTION WIDTH 12.6 % (12.0-15.0); WHITE BLOOD COUNT 4.4 x10^3/uL (4.8-10.8)
[2024-05-19 13:05] LABS: ALBUMIN 4.3 g/dL (3.2-5.5); ALBUMIN/GLOBULIN RATIO 1.7 (1.0-2.2); ALKALINE PHOSPHATASE 53 IU/L (42-121); ALT ALANINE AMINOTRANSFERASE 26 IU/L (10-60); AST ASPARTATE AMINOTRANSFERASE 23 IU/L (10-42); BILIRUBIN,TOTAL 0.4 mg/dL (0.2-1.0); BUN - BLOOD UREA NITROGEN 16 mg/dL (6-20); CALCIUM 9.9 mg/dL (8.5-10.3); CARBON DIOXIDE - CO2 27 mmol/L (21-32); CHLORIDE 104 mmol/L (101-111); CHOL/HDL RATIO 3.2 (<4.4); CHOLESTEROL 164 mg/dL; CREATININE 0.7 mg/dL (0.6-1.3); GFR - MDRD 80 (>89); GLUCOSE 103 mg/dL (74-104); HDL CHOLESTEROL 51 mg/dL; LDL CHOLESTEROL,CALCULATED 64 mg/dL; LDL/HDL RATIO 1.3 (<4.4); MAGNESIUM 1.9 mg/dL (1.7-2.3); POTASSIUM 4.1 mmol/L (3.5-4.5); SODIUM 138 mmol/L (135-145); TOTAL PROTEIN 6.9 g/dL (6.4-8.9); TRIGLYCERIDES 243 mg/dL; VLDL CHOLESTEROL 49 mg/dL
[2024-05-19 13:19] LABS: THYROID STIMULATING HORMONE 2.12 uIU/mL (0.34-5.60)
== END 2024-05-19 08:02 | disposition home or self-care (01) ==
LOC: LAB.N 08:01
PROVIDERS: ATTEND Internal Medicine Cardiovascular Disease
DX: R06.09 Other forms of dyspnea (principal); I10 Essential (primary) hypertension; E78.5 Hyperlipidemia, unspecified; R73.9 Hyperglycemia, unspecified; I48.91 Unspecified atrial fibrillation
CPT/HCPCS: 36415; 80053; 80061; 83036; 83721; 83735; 84443; 85025